=== PATIENT | female | born 1990 | race Caucasian/White ===

== ENCOUNTER 2016-10-27 21:42 | Emergency (ER) | payer MEDICAID ==
[~2016-10-27] VITALS: Ht 152.4 cm; Wt 54.4 kg
[2016-10-27 21:42] VITALS: BP_SYST 107
[2016-10-27 22:42] LABS: BILIRUBIN,URINE NEGATIVE (NEGATIVE); BLOOD, URINE 1+ (NEGATIVE); CLARITY/URINE CLEAR (CLEAR); COLOR,URINE YELLOW (YELLOW); GLUCOSE,URINE NEGATIVE (NEGATIVE); KETONES,URINE NEGATIVE (NEGATIVE); LEUKOCYTE ESTERASE ,URINE NEGATIVE (NEGATIVE); NITRITE, URINE NEGATIVE (NEGATIVE); PH,URINE 6.5 (5.0-8.0); PROTEIN URINE NEGATIVE (NEGATIVE); UROBILINOGEN,URINE 0.2 (0.2-1.0)
[2016-10-27] MEDS ORDERED: IBUPROFEN 800 MG TABLET PO ONE (22:45)
[2016-10-27 23:19] LABS: BACTERIA,URINE FEW /HPF (None Seen); MUCUS,URINE None Seen /LPF (None Seen); RBC,URINE 0-3 /HPF (0-3); WBC,URINE 0-3 /HPF (0-3)
== END 2016-10-28 00:15 | disposition home or self-care (01) ==
LOC: SED 21:42
DX: N93.8 Other specified abnormal uterine and vaginal bleeding (principal); Z91.018 Allergy to other foods
CPT/HCPCS: 76830-TC; 76856-TC; 76857; 81000-TC; 81025; 99285

== ENCOUNTER 2017-03-16 17:41 | Emergency (ER) | payer MEDICAID ==
[~2017-03-16] VITALS: Ht 149.9 cm; Wt 56.7 kg
[2017-03-16 17:55] VITALS: BP_SYST 127
[2017-03-16] MEDS ORDERED: MECLIZINE HCL 25 MG TABLET (ANITVERT) PO ONE (18:30)
[2017-03-16] MEDS ORDERED: ACETAMINOPHEN 500 MG TABLET PO ONE (18:30)
[2017-03-16 19:43] VITALS: BP_SYST 127
== END 2017-03-16 19:43 | disposition home or self-care (01) ==
LOC: SED 17:41
DX: G44.209 Tension-type headache, unspecified, not intractable (principal); N93.9 Abnormal uterine and vaginal bleeding, unspecified; Z91.018 Allergy to other foods
CPT/HCPCS: 36415; 81025; 84702; 99283; J8597